=== PATIENT | male | born 1960 | race Caucasian/White ===

== ENCOUNTER 2018-07-19 06:51 | Day surgery (SDC) | payer BC ==
[2018-07-14 15:26] VITALS: BMI 21.7
[2018-07-19 07:12] VITALS: RESP 18; TEMP 97.4
[2018-07-19] MEDS ORDERED: LACTATED RINGERS 1,000 ML IV ONE ×2 (07:15)
[2018-07-19] MEDS ORDERED: PROPOFOL 10 MG/ML 20 ML VIAL IV ONE (07:35)
--- NOTE | 2018-07-19 07:47 | P.GSHP ---
History of Present Illness H&P Date: 07/19/18 Chief Complaint: History of colon polyps This is a 57-year-old male who presents today for colonoscopy. Patient had a colonoscopy performed approximately 6 years ago. He was found to have colon polyps. Past Medical History Past Medical History: Musculoskeletal Disorder Additional Past Medical History / Comment(s): RECURRING SCIATICA BRANDON HIPS/LEGS. History of Any Multi-Drug Resistant Organisms: None Reported Additional Past Surgical History / Comment(s): COLONOSCOPY Past Anesthesia/Blood Transfusion Reactions: No Reported Reaction Smoking Status: Never smoker - Past Family History Mother Family Medical History: Cancer Additional Family Medical History / Comment(s): COLON CA Medications and Allergies Home Medications Medication Instructions Recorded Confirmed Type Calcium Carbonate [Calcium] 1,500 mg PO DAILY 07/14/18 07/14/18 History Flaxseed Oil (Unknown Dose) 1 tab PO DAILY 07/14/18 History Vitamin B-12 (Unknown Dose) 1 tab PO DAILY 07/14/18 History Vitamin D (Unknown Dose) 1 tab PO Q21D 07/14/18 History Zinc (Unknown Dose) 1 tab PO DAILY 07/14/18 History Allergies Allergy/AdvReac Type Severity Reaction Status Date / Time amoxicillin Allergy Rash/Hives Verified 07/14/18 15:09 ragweed pollen Allergy SNEEZING, Verified 07/14/18 15:09 [facility] Surgical - Exam Vital Signs Temp Pulse Resp BP Pulse Ox 97.4 F L 57 L 18 123/76 99 07/19/18 07:09 07/19/18 07:09 07/19/18 07:09 07/19/18 07:09 07/19/18 07:09 - General well developed, well nourished, no distress - Eyes PERRL - ENT normal pinna - Neck no masses - Respiratory normal expansion - Cardiovascular Rhythm: regular - Abdomen Abdomen: soft, non tender Assessment and Plan Assessment: History of colon Polyps. We'll perform colonoscopy.
--- NOTE | 2018-07-19 07:56 | P.OP ---
Date of Procedure: 07/19/18 Preoperative Diagnosis: History of colon polyps Postoperative Diagnosis: Normal colonoscopy Procedure(s) Performed: Colonoscopy Anesthesia: MAC Surgeon: Magdaleno Estrada Pathology: none sent Condition: stable Disposition: PACU Description of Procedure: PROCEDURE: The patient was placed on the endoscopy table in the lateral position. Digital rectal examination was performed which revealed no abnormalities. The prostate was symmetrical without nodules. Flexible colonoscope was then placed in the patient's anus and passed throughout the entire colon. The ileocecal valve was visualized. The cecum, ascending, transverse, descending and sigmoid colon were normal. The rectum was normal as well. There were no masses, polyps or diverticula noted in the entire colon. SUMMARY OF FINDINGS: Normal colonoscopy.
[2018-07-19 08:12] VITALS: BP 120/71; PULSE 59
== END 2018-07-19 08:26 | disposition home or self-care (01) ==
LOC: ORWHC2ENDO 06:51
PROVIDERS: ATTEND Surgery
DX: Z12.11 Encounter for screening for malignant neoplasm of colon (principal); Z86.010 Personal history of colon polyps; Z80.0 Family history of malignant neoplasm of digestive organs; Z79.899 Other long term (current) drug therapy; Z88.1 Allergy status to other antibiotic agents; Z91.048 Other nonmedicinal substance allergy status
CPT/HCPCS: J2704; G0105

== ENCOUNTER 2023-11-22 10:15 | Day surgery (SDC) | payer BC ==
[2023-11-22] MEDS: IV FLUID CONTINUATION 1,000 ML IV ONE (10:32)
[2023-11-22 10:36] VITALS: TEMP 97.2
[2023-11-22] MEDS: LACTATED RINGERS 1,000 ML IV SCH (10:44)
[2023-11-22] MEDS ORDERED: PROPOFOL 10 MG/ML 20 ML VIAL IV ONE (11:48)
--- NOTE | 2023-11-22 11:54 | P.GSHP ---
History of Present Illness H&P Date: 11/22/23 Chief Complaint: Screening colonoscopy, family history of colon cancer 8-year-old male presents today for colonoscopy. Patient has a strong family history of colon cancer with his mother having colon cancer. Past Medical History Past Medical History: Musculoskeletal Disorder Additional Past Medical History / Comment(s): RECURRING SCIATICA BRANDON HIPS/LEGS, "digestive issue" 2021 - "gassy, nauseated" resolved History of Any Multi-Drug Resistant Organisms: None Reported Additional Past Surgical History / Comment(s): COLONOSCOPY Past Anesthesia/Blood Transfusion Reactions: No Reported Reaction Smoking Status: Never smoker - Past Family History Mother Family Medical History: Cancer Additional Family Medical History / Comment(s): COLON CA Medications and Allergies Home Medications Medication Instructions Recorded Confirmed Type Calcium Carbonate [Calcium] 1,500 mg PO DAILY 07/14/18 11/22/23 History Flaxseed Oil (Unknown Dose) 1 tab PO DAILY 07/14/18 11/22/23 History Vitamin B-12 (Unknown Dose) 1 tab PO DAILY 07/14/18 11/22/23 History Zinc (Unknown Dose) 1 tab PO DAILY 07/14/18 11/22/23 History Allergies Allergy/AdvReac Type Severity Reaction Status Date / Time amoxicillin Allergy Rash/Hives Verified 11/16/23 12:45 ragweed pollen Allergy SNEEZING, Verified 11/16/23 12:45 [facility] Surgical - Exam Vital Signs Temp Pulse Resp BP Pulse Ox 97.2 F L 54 L 20 148/82 100 11/22/23 10:33 11/22/23 10:33 11/22/23 10:33 11/22/23 10:33 11/22/23 10:33 - General well developed, well nourished, no distress - Eyes PERRL - ENT normal pinna - Neck no masses - Respiratory normal expansion - Cardiovascular Rhythm: regular - Abdomen Abdomen: soft, non tender Assessment and Plan Assessment: Screening colonoscopy, family history of colon cancer. Will perform colonoscopy.
--- NOTE | 2023-11-22 12:14 | P.OP ---
Date of Procedure: 11/22/23 Preoperative Diagnosis: Screening colonoscopy Family history of colon cancer Postoperative Diagnosis: Normal colonoscopy Procedure(s) Performed: Colonoscopy Anesthesia: MAC Surgeon: Magdaleno Estrada Pathology: none sent Condition: stable Disposition: PACU Description of Procedure: The patient is placed on the endoscopy table in the lateral 3 received IV sedation. Digital rectal exam performed. This revealed no abnormalities. Flexible colonoscope was then placed patient anus and passed throughout the colon. The colonoscope could not be advanced to the cecum secondary to tortuosity of the bowel and a poor colon prep. Several times were made to maneuver the colonoscope into the cecum that was impossible. This point the scope withdrawn. The visualized right colon appeared normal. The transverse, descending and sigmoid colon appeared normal. Scope was back to the rectum and this appeared normal [id number] patient.
[2023-11-22 12:19] VITALS: RESP 16
[2023-11-22 12:27] VITALS: BP 101/66; PULSE 71
== END 2023-11-22 12:57 | disposition home or self-care (01) ==
LOC: ORWHC2ENDO 10:15
PROVIDERS: ATTEND Surgery
DX: Z12.11 Encounter for screening for malignant neoplasm of colon (principal); Z80.0 Family history of malignant neoplasm of digestive organs; Z88.0 Allergy status to penicillin; Z79.899 Other long term (current) drug therapy; Z91.018 Allergy to other foods
CPT/HCPCS: 45378